=== PATIENT | female | born 1990 | race Caucasian/White ===

== ENCOUNTER 2018-11-07 21:22 | Emergency (ER) | payer OTHER ==
[~2018-11-07] VITALS: Ht 149.9 cm; Wt 55.8 kg
[2018-11-07] MEDS ORDERED: SYNTHROID50 MCG PO (21:39)
== END 2018-11-07 23:41 | disposition home or self-care (01) ==
LOC: ER 21:22
DX: T62.8X1A Toxic effect of other specified noxious substances eaten as food, accidental (unintentional), initial encounter (principal); R11.2 Nausea with vomiting, unspecified; Y92.89 Other specified places as the place of occurrence of the external cause

== ENCOUNTER → 2020-12-08 | Outpatient (CLI) | payer OTHER ==
[~2020-12-08] MED LIST: SYNTHROID50 MCG PO
== END | disposition home or self-care (01) ==
LOC: PRENATAL 08:00
PROVIDERS: ATTEND Obstetrics & Gynecology Maternal & Fetal Medicine
DX: O26.842 Uterine size-date discrepancy, second trimester (principal); O36.80X1 Pregnancy with inconclusive fetal viability, fetus 1; O99.891 Other specified diseases and conditions complicating pregnancy; Z36.89 Encounter for other specified antenatal screening; Z3A.15 15 weeks gestation of pregnancy

== ENCOUNTER 2021-05-29 08:11 | Outpatient (CLI) | payer OTHER | END 2021-05-29 09:21 | disposition left against medical advice (07) | LOC: OBS/DEL 08:11 | PROVIDERS: ATTEND Specialist | DX: O47.1 False labor at or after 37 completed weeks of gestation (principal); Z3A.39 39 weeks gestation of pregnancy ==

== ENCOUNTER 2021-05-30 04:48 | Inpatient (IN) | payer OTHER ==
[~2021-05-30] VITALS: Ht 149.9 cm; Wt 3.2 kg
== END 2021-06-02 12:05 | disposition home or self-care (01) | DRG 788 ==
LOC: OBS/DEL 04:48 → LDR 19:39 → SURG-SUITE 19:39
PROVIDERS: ADMIT Specialist; ATTEND Specialist
PROC: 3E033VJ Introduction of Other Hormone into Peripheral Vein, Percutaneous Approach (ICD-10-PCS; 2021-05-30)
PROC: 4A1HXFZ Monitoring of Products of Conception, Cardiac Rhythm, External Approach (ICD-10-PCS; 2021-05-30)
PROC: 10D00Z1 Extraction of Products of Conception, Low, Open Approach (ICD-10-PCS; principal; 2021-05-31)
DX: O62.1 Secondary uterine inertia (principal); Z37.0 Single live birth; Z3A.40 40 weeks gestation of pregnancy; Z20.822 Contact with and (suspected) exposure to COVID-19